=== PATIENT | male | born 1980 | race Caucasian/White ===

== ENCOUNTER 2019-11-08 15:18 | Inpatient (IN) | payer OTHER ==
--- NOTE | 2019-11-08 15:56 | BHS.RME ---
Substance Use & Tx History - Substance Use History Heroin Substance amount: 10 bags Frequency of use: Daily Substance route: Injection (ex: intravenous or skin popping) Date of Last Use: 11/08/19 Alcohol Substance amount: 6 pack x 10 oz Frequency of use: Daily Substance route: Oral Date of Last Use: 11/07/19 Cocaine- Powder Substance amount: $20 Frequency of use: Daily Substance route: Injection (ex: intravenous or skin popping) Date of Last Use: 11/07/19 Nicotine Substance amount: 5 cigs Frequency of use: Daily Substance route: Smoking Date of Last Use: 11/08/19 Physical/Psych/Mental Status - Behavior General Behavior: Decreased activity Eye Contact: Normal - Cooperativeness Cooperativeness: Cooperative - Thinking Thought Processes: Tight Thought content: Future oriented Perceptions: Hallucinations (auditory, visual, olfactory) - Physical Health Problems Is patient presently having any pain?: No Does patient presently have any injuries (include location): No Does patient currently have a fever: No COWS - Scale Resting Pulse: 0= [place] 80 or Below Sweatin= Chills/Flushing Restless Observation: 0= Sits Still Pupil Size: 0= Normal to Room Light Bone or Joint Aches: 1= Mild Discomfort Runny Nose/ Eye Tearin= None GI Upset > 30mins: 0= None Tremor Observation: 1= Tremor [place], Not Seen Yawning Observation: 0= None Anxiety or Irritability: 1=Feels Anxious/Irritable Goose Flesh Skin: 0=Smooth Skin COWS Score: 4 CIWA Nausea/Vomitin-No Nausea/No Vomiting Muscle Tremors: 2 Anxiety: 1-Mildly Anxious Agitation: 0-Normal Activity Paroxysmal Sweats: No Perspiration Orientation: 0-Oriented Tacttile Disturbances: 1-Very Mild Itch/Numbness Auditory Disturbances: 2-Mild Harshness/Frighten Visual Disturbances: 2-Mild Sensitivity Headache: 4-Moderately Severe CIWA-Ar Total Score: 12
[2019-11-08 16:20] VITALS: BMI 25.9
--- NOTE | 2019-11-08 17:53 | HP ---
"COWS - Scale Resting Pulse: 0= [place] 80 or Below Sweatin= Chills/Flushing Restless Observation: 0= Sits Still Pupil Size: 0= Normal to Room Light Bone or Joint Aches: 0= None Runny Nose/ Eye Tearin= None GI Upset > 30mins: 1= Stomach Cramp Tremor Observation: 1= Tremor [place], Not Seen Yawning Observation: 0= None Anxiety or Irritability: 1=Feels Anxious/Irritable Goose Flesh Skin: 3=Piloerection COWS Score: 7 CIWA Score Nausea/Vomitin-No Nausea/No Vomiting Muscle Tremors: 1-None Visible, but [place] Anxiety: 1-Mildly Anxious Agitation: 0-Normal Activity Paroxysmal Sweats: No Perspiration Orientation: 0-Oriented Tacttile Disturbances: 1-Very Mild Itch/Numbness Auditory Disturbances: 2-Mild Harshness/Frighten Visual Disturbances: 2-Mild Sensitivity Headache: 0-None Present CIWA-Ar Total Score: 7 - Admission Criteria [facility]AS[facility] Guidelines: Admission for Medically Managed Detox: Requires at least one of the followin. CIWA greater than 12 2. Seizures within the past 24 hours 3. Delirium tremens within the past 24 hours 4. Hallucinations within the past 24 hours 5. Acute intervention needed for co occurring medical disorder 6. Acute intervention needed for co occurring psychiatric disorder 7. Severe withdrawal that cannot be handled at a lower level of care (continued vomiting, continued diarrhea, abnormal vital signs) requiring intravenous medication and/or fluids 8. Admission ROS [facility] Allergies/Adverse Reactions: Allergies Allergy/AdvReac Type Severity Reaction Status Date / Time No Known Allergies Allergy Verified 11/08/19 17:59 History of Present Illness: Search Terms: elio jackson, 1980 Search Date: 11/08/2019 17:48:24 PM The Drug Utilization Report below displays all of the controlled substance prescriptions, if any, that your patient has filled in the last twelve months. The information displayed on this report is compiled from pharmacy submissions to the Department, and accurately reflects the information as submitted by the pharmacies. This report was requested by: Sherly Lopez | Reference #: [id number] There are no results for the search terms that you entered. 38 y.o. male requesting detox from heroin and alcohol. heroin : 10 bags/ IV , first age of use 28 , latest use today , OD x 2 , denies abscess/ endo cocaine : 2 bag /day IV cannabis - occasional use tobacco - /-04/01 ppd alcohol - 6-pk /day , reports anxiety and tremors if not drinking alcohol , denies seizures/ blackouts , latest use yesterday . PMHX /PSHX : right FA 05/02 fall @ work in [place] 2017 Psych : denies Exam Limitations: Clinical Condition - Review of Systems Constitutional: No Symptoms Reported EENT: reports: Other (glasses) Respiratory: reports: No Symptoms reported Cardiac: reports: No Symptoms Reported GI: reports: Abdominal cramping : reports: No Symptoms Reported Musculoskeletal: reports: Back Pain (chronic LBP) Integumentary: reports: See HPI Neuro: reports: No Symptoms reported Endocrine: reports: No Symptoms Reported Hematology: reports: No Symptoms Reported Psychiatric: reports: Orientated x3, Anxious Patient History - Smoking Cessation Smoking history: Current every day smoker Have you smoked in the past 12 months: Yes Hx Chewing Tobacco Use: No Initiated information on smoking cessation: Yes 'Breaking Loose' booklet given: 11/08/19 Admission Physical Exam S - Vital Signs Vital Signs: Vital Signs - 24 hr 11/08/19 16:19 Temperature 97.5 F L Pulse Rate 60 Respiratory 20 Rate Blood Pressure 101/56 L - Physical General Appearance: Yes: Mild Distress, Anxious HEENTM: Yes: EOMI, Hearing grossly Normal, Normocephalic, Normal Voice Respiratory: Yes: Chest Non-Tender, Lungs Clear, Normal Breath Sounds, No Respiratory Distress, No Accessory Muscle Use Neck: Yes: No masses,lesions,Nodules, Trachea in good position Cardiology: Yes: Regular Rhythm, Regular Rate, S1, S2 Abdominal: Yes: Non Tender, Soft Musculoskeletal: Yes: Gait Steady Extremities: Yes: Normal Inspection, Normal Range of Motion, Non-Tender Neurological: Yes: Fully Oriented, Alert, Normal Mood/Affect Integumentary: Yes: Warm, Track [place] (kizzy ue , no abscess/ erythema noted) - Diagnostic (1) Opioid use disorder Current Visit: Yes Status: Chronic (2) Cocaine use disorder Current Visit: Yes Status: Chronic Breathalyzer - Breathalyzer Breathalyzer: 0 Urine Drug Screen - Test Device Lot number: [id number] Expiration date: 07/06/21 - Control Is test valid?: Yes - Results Drug screen NEGATIVE: No Urine drug screen results: THC-Marijuana, RAJWINDER-Cocaine, FEN-Fentanyl, MOP-Opiates Inpatient Rehab Admission - Rehab Decision to Admit Inpatient rehab admission?: No"
[2019-11-08] MEDS ORDERED: MAGNESIUM CITRATE 300 ML BOTTLE PO PRN (18:00)
[2019-11-08] MEDS ORDERED: MELATONIN 5 MG TABLETS PO PRN (18:00)
[2019-11-08] MEDS ORDERED: MAG HYDROX/AL HYDROX/SIMETH 30 ML UNIT-DOSE CUP PO PRN (18:00)
[2019-11-08] MEDS ORDERED: METHOCARBAMOL 500 MG TABLET PO PRN (18:00)
[2019-11-08] MEDS ORDERED: NICOTINE POLACRILEX 2 MG GUM BUC PRN (18:00)
[2019-11-08] MEDS ORDERED: MENTHOL/PHENOL 1 EACH UD MM PRN (18:00)
[2019-11-08] MEDS ORDERED: IBUPROFEN 400 MG TABLET (FP) PO PRN (18:00)
[2019-11-08] MEDS ORDERED: ACETAMINOPHEN 325 MG TABLET (FP) PO PRN ×2 (18:00)
[2019-11-08] MEDS ORDERED: MAGNESIUM HYDROX 2400MG/30ML ORAL SUSPENSION 30 ML CUP PO PRN (18:00)
[2019-11-08] MEDS ORDERED: BISMUTH SUBSALICYLATE 524 MG/30 ML UD PO PRN (18:00)
[2019-11-08] MEDS ORDERED: diazePAM 5 MG TABLET PO PRN (18:01)
[2019-11-08] MEDS ORDERED: cloNIDine HCL 0.1 MG TABLET PO PRN (18:01)
[2019-11-08] MEDS: diazePAM 5 MG TABLET PO SCH (21:10)
[2019-11-08] MEDS ORDERED: THIAMINE HCL 100 MG TABLET (FP) PO SCH (22:00)
[2019-11-08] MEDS ORDERED: METHADONE HCL 10 MG TABLET (FOR DETOX USE ONLY) PO ONE (22:00)
[2019-11-09] MEDS: diazePAM 5 MG TABLET PO SCH (07:16)
[2019-11-09] MEDS ORDERED: METHADONE HCL 5 MG TABLET (FOR DETOX USE ONLY) ONE (09:34)
[2019-11-09] MEDS ORDERED: METHADONE HCL 10 MG TABLET (FOR DETOX USE ONLY) ONE (09:34)
[2019-11-09 09:40] VITALS: BP 124/76; PULSE 51; TEMP 97.8
[2019-11-09] MEDS ORDERED: NICOTINE 7 MG/24 HOURS TOPICAL PATCH TD SCH (10:00)
[2019-11-09] MEDS ORDERED: PRENATAL VITAMINS W/ FOLIC ACID TABLET (FP) PO SCH (10:00)
[2019-11-09] MEDS ORDERED: METHADONE (DETOX) 20 MG, METHADONE (DETOX) 5 MG PO ONE (10:00)
[2019-11-09 10:24] LABS: HEMATOCRIT 42.2 % (35.4-49); HEMOGLOBIN 13.9 GM/dL (11.7-16.9); MEAN CELL VOLUME 90.8 fl (80-96); MEAN PLT VOLUME 8.4 fl (7.5-11.1); PLATELET COUNT 203 K/MM3 (134-434); RBC 4.65 M/mm3 (4.00-5.60); RDW 13.8 % (11.9-15.9); WHITE BLOOD COUNT 5.7 K/mm3 (4.0-10.0)
--- NOTE | 2019-11-09 10:26 | EKG ---
Test Reason : Blood Pressure : / mmHG Vent. Rate : 051 BPM Atrial Rate : 051 BPM P-R Int : 124 ms QRS Dur : 094 ms QT Int : 416 ms P-R-T Axes : 047 053 044 degrees QTc Int : 383 ms SINUS BRADYCARDIA WITH MARKED SINUS ARRHYTHMIA OTHERWISE NORMAL ECG NO PREVIOUS ECGS AVAILABLE Confirmed by MD Ej, Fadi ([id number]) on 11/09/2019 10:26:28 AM Referred By: Confirmed By:Fadi Pagan MD
[2019-11-09 10:32] LABS: ALBUMIN 3.1 g/dl (3.4-5.0); BILIRUBIN,TOTAL 0.4 mg/dL (0.2-1); BLOOD UREA NITROGEN 16.3 mg/dL (7-18); CALCIUM 9.3 mg/dL (8.5-10.1); CREATININE 1.1 mg/dL (0.55-1.3)
--- NOTE | 2019-11-09 11:33 | PN ---
S CIWA - CIWA Score Nausea/Vomitin Muscle Tremors: 2 Anxiety: 2 Agitation: 2 Paroxysmal Sweats: 1-Minimal [place] Moist Orientation: 0-Oriented Tacttile Disturbances: 1-Very Mild Itch/Numbness Auditory Disturbances: 0-None Visual Disturbances: 0-None Headache: 2-Mild CIWA-Ar Total Score: 12 BHS COWS - Scale Resting Pulse: 0= [place] 80 or Below Sweatin= No chills or Flushing Restless Observation: 1= Difficult to Sit Still Pupil Size: 1= Pupils >than Normal Bone or Joint Aches: 1= Mild Discomfort Runny Nose/ Eye Tearin= Runny Nose/Eyes GI Upset > 30mins: 2= Nausea/Diarrhea Tremor Observation of Outstretched Hands: 2= Slight Tremor Visible Yawning Observation: 2= >3x During Session Anxiety or Irritability: 2=Irritable/Anxious Goose Flesh Skin: 0=Smooth Skin COWS Score: 13 BHS Progress Note (SOAP) Subjective: alert,irritable,anxious,interrupted sleep,tremor,pain in the body and back,nausea,diarrhea Objective: 11/09/19 11:31 Vital Signs Temperature 97.8 F 11/09/19 08:47 Pulse Rate 51 L 11/09/19 08:47 Respiratory Rate 18 11/09/19 08:47 Blood Pressure 124/76 11/09/19 08:47 O2 Sat by Pulse Oximetry (%) 97 11/09/19 08:47 11/09/19 11:31 Laboratory Last Values WBC 5.7 K/mm3 (4.0-10.0) 11/09/19 07:50 RBC 4.65 M/mm3 (4.00-5.60) 11/09/19 07:50 Hgb 13.9 GM/dL (11.7-16.9) 11/09/19 07:50 Hct 42.2 % (35.4-49) 11/09/19 07:50 MCV 90.8 fl (80-96) 11/09/19 07:50 MCH 30.0 pg (25.7-33.7) 11/09/19 07:50 MCHC 33.0 g/dl (32.0-35.9) 11/09/19 07:50 RDW 13.8 % (11.9-15.9) 11/09/19 07:50 Plt Count 203 K/MM3 (134-434) 11/09/19 07:50 MPV 8.4 fl (7.5-11.1) 11/09/19 07:50 Sodium 138 mmol/L (136-145) 11/09/19 07:50 Potassium 4.0 mmol/L (3.5-5.1) 11/09/19 07:50 Chloride 105 mmol/L (98-107) 11/09/19 07:50 Carbon Dioxide 30 mmol/L (21-32) 11/09/19 07:50 Anion Gap 3 MMOL/L (8-16) L 11/09/19 07:50 BUN 16.3 mg/dL (7-18) 11/09/19 07:50 Creatinine 1.1 mg/dL (0.55-1.3) 11/09/19 07:50 Est GFR (CKD-EPI)AfAm 99.57 11/09/19 07:50 Est GFR (CKD-EPI)NonAf 85.91 11/09/19 07:50 Random Glucose 95 mg/dL (74-106) 11/09/19 07:50 Calcium 9.3 mg/dL (8.5-10.1) 11/09/19 07:50 Total Bilirubin 0.4 mg/dL (0.2-1) 11/09/19 07:50 AST 18 U/L (15-37) 11/09/19 07:50 ALT 18 U/L (13-61) 11/09/19 07:50 Alkaline Phosphatase 90 U/L (45-117) 11/09/19 07:50 Total Protein 8.0 g/dl (6.4-8.2) 11/09/19 07:50 Albumin 3.1 g/dl (3.4-5.0) L 11/09/19 07:50 Assessment: 11/09/19 11:32 withdrawal symptom Plan: continue detox,methadone and valium regimen
--- NOTE | 2019-11-09 11:34 | PN ---
S Progress Note Note: patient did not want to complete treatment,high risk of relapsing explained,patient understood,seen by counselor, patient signed release ama
--- NOTE | 2019-11-09 11:35 | DS ---
[facility] Detox Discharge Summary Admission Date: 11/08/19 Discharge Date: 11/09/19 - History Present History: Cocaine Dependence, Opioid Dependence Additional Comments: alert,oriented x3 lung clear on auscultation bilaterally no abdominal pain,no tenderness no edema of legs patient did not want to complete treatment,high risk of relapsing explained,understood,signed release ama, advise to call 911 if not feeling well total time spending 35 minutes Pertinent Past History: ivdu - Physical Exam Results Vital Signs: Vital Signs Temperature 97.8 F 11/09/19 08:47 Pulse Rate 51 L 11/09/19 08:47 Respiratory Rate 18 11/09/19 08:47 Blood Pressure 124/76 11/09/19 08:47 O2 Sat by Pulse Oximetry (%) 97 11/09/19 08:47 Pertinent Admission Physical Exam Findings: withdrawal signs and symptom Vital Signs Temperature 97.8 F 11/09/19 08:47 Pulse Rate 51 L 11/09/19 08:47 Respiratory Rate 18 11/09/19 08:47 Blood Pressure 124/76 11/09/19 08:47 O2 Sat by Pulse Oximetry (%) 97 11/09/19 08:47 Laboratory Last Values WBC 5.7 K/mm3 (4.0-10.0) 11/09/19 07:50 RBC 4.65 M/mm3 (4.00-5.60) 11/09/19 07:50 Hgb 13.9 GM/dL (11.7-16.9) 11/09/19 07:50 Hct 42.2 % (35.4-49) 11/09/19 07:50 MCV 90.8 fl (80-96) 11/09/19 07:50 MCH 30.0 pg (25.7-33.7) 11/09/19 07:50 MCHC 33.0 g/dl (32.0-35.9) 11/09/19 07:50 RDW 13.8 % (11.9-15.9) 11/09/19 07:50 Plt Count 203 K/MM3 (134-434) 11/09/19 07:50 MPV 8.4 fl (7.5-11.1) 11/09/19 07:50 Sodium 138 mmol/L (136-145) 11/09/19 07:50 Potassium 4.0 mmol/L (3.5-5.1) 11/09/19 07:50 Chloride 105 mmol/L (98-107) 11/09/19 07:50 Carbon Dioxide 30 mmol/L (21-32) 11/09/19 07:50 Anion Gap 3 MMOL/L (8-16) L 11/09/19 07:50 BUN 16.3 mg/dL (7-18) 11/09/19 07:50 Creatinine 1.1 mg/dL (0.55-1.3) 11/09/19 07:50 Est GFR (CKD-EPI)AfAm 99.57 11/09/19 07:50 Est GFR (CKD-EPI)NonAf 85.91 11/09/19 07:50 Random Glucose 95 mg/dL (74-106) 11/09/19 07:50 Calcium 9.3 mg/dL (8.5-10.1) 11/09/19 07:50 Total Bilirubin 0.4 mg/dL (0.2-1) 11/09/19 07:50 AST 18 U/L (15-37) 11/09/19 07:50 ALT 18 U/L (13-61) 11/09/19 07:50 Alkaline Phosphatase 90 U/L (45-117) 11/09/19 07:50 Total Protein 8.0 g/dl (6.4-8.2) 11/09/19 07:50 Albumin 3.1 g/dl (3.4-5.0) L 11/09/19 07:50 - Diagnosis (1) Opioid dependence with withdrawal Current Visit: Yes Status: Acute (2) Cocaine dependence Current Visit: Yes Status: Acute (3) IVDU (intravenous drug user) Current Visit: Yes Status: Acute - AMA Did Patient Leave Against Medical Advice: Yes
[2019-11-10] MEDS ORDERED: diazePAM 5 MG TABLET PO SCH (06:00)
[2019-11-10] MEDS ORDERED: METHADONE HCL 10 MG TABLET (FOR DETOX USE ONLY) PO ONE (10:00)
[2019-11-11] MEDS ORDERED: diazePAM 5 MG TABLET PO ONE (06:00)
[2019-11-11] MEDS ORDERED: METHADONE (DETOX) 10 MG, METHADONE (DETOX) 5 MG PO ONE (10:00)
[2019-11-12] MEDS ORDERED: METHADONE HCL 10 MG TABLET (FOR DETOX USE ONLY) PO ONE (10:00)
[2019-11-13] MEDS ORDERED: METHADONE HCL 5 MG TABLET (FOR DETOX USE ONLY) PO ONE (06:00)
== END 2019-11-09 11:45 | disposition left against medical advice (07) | DRG 770 ==
LOC: YASAS 15:18 → Y6N 19:19
PROVIDERS: ADMIT Allergy & Immunology; ATTEND Allergy & Immunology
PROC: HZ2ZZZZ Detoxification Services for Substance Abuse Treatment (ICD-10-PCS; principal; 2019-11-08)
DX: F11.23 Opioid dependence with withdrawal (principal); F14.20 Cocaine dependence, uncomplicated; F17.210 Nicotine dependence, cigarettes, uncomplicated
CPT/HCPCS: 36415; 80053; 85027; 86780; 93005; 93010; U0003